=== PATIENT | male | born 1970 | race Caucasian/White ===

== ENCOUNTER 2019-09-23 17:52 | Emergency (ER) | payer MEDICAID ==
--- NOTE | 2019-09-23 18:48 | EDM.PDOC ---
ED HPI GENERAL MEDICAL PROBLEM - General Chief Complaint: General Stated Complaint: NUMBNESS IN LEFT, CHEST PAIN Time Seen by Provider: 09/23/19 18:25 Source of Information: Reports: Patient History Limitations: Reports: Intoxication - History of Present Illness INITIAL COMMENTS - FREE TEXT/NARRATIVE: 49-year-old with reported history of coronary artery disease presents with concerns of chest pain. He has a history of alcoholism and is currently drinking. He is planning to go in for treatment this week, and wants this chest pain addressed before this time in case it is an issue at the treatment facility. He did have some beer and wine this evening before presented to the ED. Reports an intermittent tinge in his lateral left chest. The pain is usually quite brief. There is no associated dyspnea. It is not exertional. He reports that he after he dips tobacco or when he's at [employer] and "feels his arteries clogging". He is currently chest pain free. No changes in symptoms for several years. - Related Data Allergies Allergy/AdvReac Type Severity Reaction Status Date / Time Penicillins Allergy Cannot Verified 09/23/19 18:10 Remember Home Meds: Home Meds Pravastatin Sodium [Pravachol] 1 tab PO DAILY 09/23/19 [History] Past Medical History Cardiovascular History: Reports: [place] Musculoskeletal History: Reports: Neck Pain, Chronic Neurological History: Reports: CVA Psychiatric History: Reports: Addiction - Past Surgical History GI Surgical History: Reports: Appendectomy Social & Family History - Alcohol Use Days Per Week of Alcohol Use: 7 Number of Drinks Per Day: 10 Total Drinks Per Week: 70 - Recreational Drug Use Recreational Drug Use: Yes Recreational Drug Type: Reports: Marijuana/Hashish ED ROS GENERAL - Review of Systems Review Of Systems: See Below Constitutional: Reports: No Symptoms HEENT: Reports: No Symptoms Respiratory: Reports: No Symptoms Cardiovascular: Reports: Chest Pain Endocrine: Reports: No Symptoms GI/Abdominal: Reports: No Symptoms : Reports: No Symptoms Musculoskeletal: Reports: No Symptoms Skin: Reports: No Symptoms Neurological: Reports: No Symptoms Psychiatric: Reports: No Symptoms Hematologic/Lymphatic: Reports: No Symptoms Immunologic: Reports: No Symptoms ED EXAM, GENERAL - Physical Exam Exam: See Below Exam Limited By: Intoxication General Appearance: Alert, No Apparent Distress Ears: Normal External Exam Nose: Normal Inspection Throat/Mouth: Normal Inspection Head: Atraumatic, Normocephalic Neck: Normal Inspection Respiratory/Chest: Lungs Clear Cardiovascular: Regular Rate, Rhythm, No Murmur GI/Abdominal: Soft, Non-Tender, No Distention Back Exam: Normal Inspection Extremities: Normal Inspection Neurological: Alert, Oriented Psychiatric: Normal Affect, Normal Mood Skin Exam: Warm, Dry EKG INTERPRETATION EKG Date: 09/23/19 Rhythm: NSR QRS: Normal ST-T: Normal Course - Vital Signs Last Recorded V/S: Last Vital Signs Temp 35.4 C 09/23/19 18:22 Pulse 80 09/23/19 18:22 Resp 16 09/23/19 18:22 BP 148/89 H 09/23/19 18:22 Pulse Ox 96 09/23/19 18:22 - Orders/Labs/Meds Orders: Active Orders 24 hr Category Date Time Status EKG Documentation Completion [RC] ASDIRECTED Care 09/23/19 18:25 Active EKG 12 Lead [EK] Routine Ther 09/23/19 18:25 Ordered - Re-Assessments/Exams Free Text/Narrative Re-Assessment/Exam: 49 yo presents with concerns of chest pain for several years. No recent change in symptoms, just wants it "checked out" prior to going to treatment for alcohol abuse. Does not sound cardiac in nature. Screening EKG unremarkable. Alternative emergent etiology such as PE, PTX, infection, aortic pathology seem unlikely. This issue is stable to be addressed by PCP after etoh treatment. We are discharging him and assisting with getting him to detox. 09/23/19 18:50 Departure - Departure Time of Disposition: 18:52 Disposition: Home, Self-Care 01 Clinical Impression: Alcoholism Chest pain Qualifiers: Chest pain type: unspecified Qualified Code(s): R07.9 - Chest pain, unspecified - Discharge Information Referrals: PCP,None [Primary Care Provider] - Additional Instructions: We do not believe that your chest pain requires further work-up in the emergency department, you can follow up with you primary doctor to discuss the issue more once you are done with treatment. Please return to the ER if you notice worsening of chest pain symptoms. - My Orders Last 24 Hours: My Active Orders 09/23/19 18:25 EKG Documentation Completion [RC] ASDIRECTED EKG 12 Lead [EK] Routine - Assessment/Plan Last 24 Hours: My Active Orders 09/23/19 18:25 EKG Documentation Completion [RC] ASDIRECTED EKG 12 Lead [EK] Routine
== END 2019-09-23 20:55 | disposition home or self-care (01) ==
LOC: JP.ED 17:52
DX: F10.20 Alcohol dependence, uncomplicated (principal); R07.9 Chest pain, unspecified; I25.10 Atherosclerotic heart disease of native coronary artery without angina pectoris; I25.2 Old myocardial infarction; Z88.0 Allergy status to penicillin; Y90.7 Blood alcohol level of 200-239 mg/100 ml
CPT/HCPCS: 36415; 93005; 99284-25; G0480